=== PATIENT | female | born 1965 | race Caucasian/White ===

== ENCOUNTER 2024-05-02 13:31 | Observation (INO) | payer OTHER ==
[2024-05-02 14:37] VITALS: BMI 21.2
[2024-05-02 15:28] LABS: BASO % 1.2 % (0-2.0); EOS % 2.3 % (0-4.5); HEMATOCRIT 36.8 % (32.4-45.2); HEMOGLOBIN 11.9 GM/dL (10.7-15.3); LYMPH % 27.9 % (8-40); MCH 22.9 pg (25.7-33.7); MCHC 32.2 g/dl (32.0-36.0); MEAN PLT VOLUME 8.1 fl (7.5-11.1); MONO % 6.3 % (3.8-10.2); NEUT % 62.3 % (42.8-82.8); PLATELET COUNT 235 10^3/uL (134-434); RBC 5.18 M/mm3 (3.60-5.2); RDW 14.9 % (11.6-15.6); WHITE BLOOD COUNT 4.8 K/mm3 (4.0-10.0)
[2024-05-02 15:37] LABS: HCG,QUALITATIVE URINE Negative
[2024-05-02 15:38] LABS: URINE APPEARANCE CLEAR; URINE BILIRUBIN NEGATIVE (NEGATIVE); URINE COLOR YELLOW; URINE GLUCOSE (UA) NEGATIVE (NEGATIVE); URINE KETONE TRACE (NEGATIVE); URINE LEUK ESTERASE NEGATIVE (NEGATIVE); URINE NITRITE NEGATIVE (NEGATIVE); URINE PROTEIN NEGATIVE (NEGATIVE); URINE UROBILINOGEN 0.2 mg/dL (0.2-1.0)
[2024-05-02 15:46] LABS: POTASSIUM 3.5 mmol/L (3.5-5.1)
[2024-05-02 15:49] LABS: ALBUMIN 4.1 g/dl (3.4-5.0); CALCIUM 9.3 mg/dL (8.5-10.1); MAGNESIUM 2.1 mg/dL (1.8-2.4)
[2024-05-02 15:53] LABS: CREATININE 0.7 mg/dL (0.55-1.3)
[2024-05-02 15:54] LABS: BILIRUBIN,TOTAL 0.4 mg/dL (0.2-1); TOT PROT 6.7 g/dl (6.4-8.2)
[2024-05-02] MEDS: LACTATED RINGERS SOLUTION 1,000 ML/1,000 ML INFUS.BAG IV SCH (20:15)
[2024-05-02] MEDS ORDERED: ALPRAZolam 0.25 MG TABLET ONE (23:02)
[2024-05-02] MEDS: ALPRAZolam 0.25 MG TABLET PO PRN (23:05)
[2024-05-03 06:46] LABS: HEMATOCRIT 37.8 % (32.4-45.2); HEMOGLOBIN 11.9 GM/dL (10.7-15.3); MCH 22.7 pg (25.7-33.7); MCHC 31.4 g/dl (32.0-36.0); MEAN CELL VOLUME 72.2 fl (80-96); MEAN PLT VOLUME 8.4 fl (7.5-11.1); PLATELET COUNT 227 10^3/uL (134-434); RBC 5.24 M/mm3 (3.60-5.2); RDW 14.8 % (11.6-15.6); WHITE BLOOD COUNT 3.5 K/mm3 (4.0-10.0)
[2024-05-03 07:01] LABS: IRON SERUM 98 ug/dL (50-175)
[2024-05-03 07:02] LABS: TOTAL IRON BINDING CAPACITY 326 ug/dL (250-450)
[2024-05-03 07:10] LABS: BLOOD UREA NITROGEN 12.7 mg/dL (7-18)
[2024-05-03 07:11] LABS: ALBUMIN 3.7 g/dl (3.4-5.0)
[2024-05-03 07:14] LABS: CREATININE 0.7 mg/dL (0.55-1.3); PHOSPHOROUS 3.7 mg/dL (2.5-4.9)
[2024-05-03 07:15] LABS: BILIRUBIN,TOTAL 0.4 mg/dL (0.2-1); TOT PROT 6.2 g/dl (6.4-8.2)
[2024-05-03] MEDS: SODIUM CHLORIDE 1,000 ML IV SCH (08:33)
[2024-05-03] MEDS: ENOXAPARIN NA (PORCINE) 40 MG/0.4 ML DISP.SYRIN SQ SCH (10:15)
[2024-05-03] MEDS: ESCITALOPRAM OXALATE 10 MG TABLET PO SCH (16:06)
[2024-05-03 18:44] VITALS: BP 107/72; PULSE 83; RESP 20; TEMP 98.1
== END 2024-05-03 19:59 | disposition home or self-care (01) ==
LOC: JER 13:31 → JERBED 16:42 → J4W 05-03 09:12
PROVIDERS: ADMIT Internal Medicine; ATTEND Internal Medicine
PROC: 3E0337Z Introduction of Electrolytic and Water Balance Substance into Peripheral Vein, Percutaneous Approach (ICD-10-PCS; principal; 2024-05-02)
DX: R55 Syncope and collapse (principal); R42 Dizziness and giddiness; F41.8 Other specified anxiety disorders; D50.9 Iron deficiency anemia, unspecified; W18.39XA Other fall on same level, initial encounter; Y93.89 Activity, other specified; Y92.89 Other specified places as the place of occurrence of the external cause
CPT/HCPCS: 0241U-QW; 36415; 70553-TC; 71045-TC-FY; 80053; 80061; 81003; 82728; 82962; 83036; 83540; 83550; 83735; 84100; 84439; 84443; 84484; 84703; 85025; 85027; 85045; 87086; 93005; 93010; 93306-TC; 99285-25; G0378